=== PATIENT | male | born 1960 | race Caucasian/White ===

== ENCOUNTER 2016-12-16 17:42 | Inpatient (IN) | payer MEDICAID, MEDICARE ==
[~2016-12-16] VITALS: Ht 180.3 cm; Wt 87.1 kg
[~2016-12-16 17:42] MED LIST: ALBU0.424 IH; AMIO100T4 PO; ASPI81TA2 PO; ATOR20TA65 PO; AZIT250T6 PO; CARV3 PO; DSS100 PO; GUAIFCF5L PO; IPRA3AMP4 IH; MOM30 PO; MORP60TA49 PO; PANT40TA25 PO; [UNRECOGNIZED DRUG - CODE] PO; [UNRECOGNIZED DRUG - CODE] PO
[2016-12-16 19:02] LABS: BASOPHILS % (AUTO) 0.9 % (0.0-2.0); EOSINOPHILS % (AUTO) 1.1 % (1.0-6.0); HEMATOCRIT 42.4 % (41-53); HEMOGLOBIN 13.6 g/dL (13.5-17.5); LYMPHOCYTES # (AUTO) 2.6 K/uL (1.0-4.8); LYMPHOCYTES % (AUTO) 32.1 % (22.0-44.0); MEAN CORPUSCULAR VOLUME 94 fL (80-100); MONOCYTES # (AUTO) 0.7 K/uL (0.1-1.0); MONOCYTES % (AUTO) 8.8 % (2.0-9.0); NEUTROPHILS # (AUTO) 4.7 K/uL (1.8-7.7); NEUTROPHILS % (AUTO) 57.1 % (40.0-70.0); PLATELET COUNT (AUTO) 371 K/uL (150-450); RED BLOOD CELL COUNT(AUTO) 4.52 MIL/uL (4.50-5.90); RED CELL DISTRIBUTION WIDTH 16.4 % (11.5-14.5); WHITE BLOOD COUNT (AUTO) 8.2 K/uL (4.5-11.0)
[2016-12-16 19:12] VITALS: BP 133/72
[2016-12-16 19:12] LABS: CALCIUM, TOTAL 8.6 mg/dL (8.8-10.5); CREATININE 1.32 mg/dL (0.60-1.30); POTASSIUM 4.3 mmol/L (3.5-5.1)
[2016-12-16 19:26] LABS: ALBUMIN 3.4 g/dL (3.4-5.0); BILIRUBIN,TOTAL 0.5 mg/dL (0.1-1.0); MAGNESIUM 2.3 mg/dL (1.80-2.40); PHOSPHORUS 3.9 mg/dL (2.5-4.9); THYROID STIMULATING HORMONE 1.03 uIU/mL (0.36-3.74); TOTAL PROTEIN, SERUM 7.6 g/dL (6.4-8.2)
[2016-12-16] MEDS ORDERED: ZOLPIDEM TARTRATE 10 MG TABLET PO PRN (21:15)
[2016-12-16] MEDS ORDERED: LISINOPRIL 20 MG TABLET PO ONE (21:15)
[2016-12-16 23:30] VITALS: BP 126/79
[2016-12-17] MEDS: AMIODARONE HCL 200 MG TABLET PO SCH ×3 (00:04→21:10)
[2016-12-17] MEDS: HEPARIN SODIUM,PORCINE 5,000 UNITS/ML VIAL SQ SCH ×3 (00:05→21:10)
[2016-12-17] MEDS: MEXILETINE HCL 200 MG CAPSULE PO SCH ×4 (00:07→23:30)
[2016-12-17 05:53] VITALS: BP 122/74
[2016-12-17 07:28] VITALS: BP 117/76
[2016-12-17] MEDS: CARVEDILOL 3.125 MG TABLET PO SCH ×2 (08:07→21:10)
[2016-12-17] MEDS: ASPIRIN 81 MG CHEWABLE TABLET PO SCH (08:07)
[2016-12-17] MEDS: ATORVASTATIN CALCIUM 20 MG TABLET PO SCH (08:08)
[2016-12-17] MEDS: MORPHINE SULFATE 15 MG ER TABLET PO SCH ×2 (08:08→22:44)
[2016-12-17] MEDS: SERTRALINE HCL 50 MG TABLET PO SCH (08:08)
[2016-12-17 11:55] VITALS: BP 134/78
[2016-12-17 15:01] VITALS: BP 114/77
[2016-12-17] MEDS ORDERED: ALBUTEROL SULFATE 2.5 MG/0.5 ML NEB SOLUTION NEB PRN (18:15)
[2016-12-17] MEDS ORDERED: CefTRIAXone SODIUM 1 GM/VIAL IM SCH (18:15)
[2016-12-17] MEDS ORDERED: IPRATROPIUM BROMIDE 0.5 MG/2.5 ML NEB SOLUTION NEB PRN (18:15)
[2016-12-17 19:35] VITALS: BP 102/71
[2016-12-17] MEDS ORDERED: SODIUM CHLORIDE 0.9% 50 ML ONE (21:15)
[2016-12-17] MEDS: CefTRIAXone 1 GM/DEXTROSE 50 ML IV SCH (21:25)
[2016-12-17 23:30] VITALS: BP 134/77
[2016-12-18 04:26] VITALS: BP 121/66
[2016-12-18 07:34] VITALS: BP 122/75
[2016-12-18] MEDS: CARVEDILOL 3.125 MG TABLET PO SCH ×2 (08:22→20:51)
[2016-12-18] MEDS: MEXILETINE HCL 200 MG CAPSULE PO SCH ×2 (08:22→15:18)
[2016-12-18] MEDS: ATORVASTATIN CALCIUM 20 MG TABLET PO SCH (08:22)
[2016-12-18] MEDS: ASPIRIN 81 MG CHEWABLE TABLET PO SCH (08:22)
[2016-12-18] MEDS: MORPHINE SULFATE 15 MG ER TABLET PO SCH ×2 (08:22→20:52)
[2016-12-18] MEDS: SERTRALINE HCL 50 MG TABLET PO SCH (08:22)
[2016-12-18] MEDS: AMIODARONE HCL 200 MG TABLET PO SCH ×2 (08:22→20:52)
[2016-12-18] MEDS: HEPARIN SODIUM,PORCINE 5,000 UNITS/ML VIAL SQ SCH ×2 (08:22→20:59)
[2016-12-18 10:54] LABS: ANION GAP 7 mmol/L (8-16); CARBON DIOXIDE 29 mmol/L (22-29); CHLORIDE 101 mmol/L (98-107); GLOMERULAR FILTR. RATE CALC > 60 mL/min (>60); POTASSIUM 4.4 mmol/L (3.5-5.1); SODIUM SERUM 137 mmol/L (136-145); UREA NITROGEN, BLOOD 27 mg/dL (7-18)
[2016-12-18 11:04] LABS: B-TYPE NATRIURETIC PEPTIDE 92 pg/mL (0-100)
[2016-12-18 11:27] VITALS: BP 116/69
[2016-12-18 14:51] VITALS: BP 113/63
[2016-12-18 19:19] VITALS: BP 106/58
[2016-12-18] MEDS: CefTRIAXone 1 GM/DEXTROSE 50 ML IV SCH (20:51)
[2016-12-19] VITALS (7 sets, daily range): BP systolic 102–120; BP diastolic 61–74
[2016-12-19] MEDS: MEXILETINE HCL 200 MG CAPSULE PO SCH ×4 (00:21→23:41)
[2016-12-19 07:17] LABS: BASOPHILS % (AUTO) 0.6 % (0.0-2.0); EOSINOPHILS % (AUTO) 1.1 % (1.0-6.0); HEMATOCRIT 39.2 % (41-53); HEMOGLOBIN 12.5 g/dL (13.5-17.5); LYMPHOCYTES # (AUTO) 1.8 K/uL (1.0-4.8); LYMPHOCYTES % (AUTO) 19.9 % (22.0-44.0); MEAN CORPUSCULAR HEMOGLOBIN 29.7 pg (26.0-34.0); MEAN CORPUSCULAR HGB CONC 31.8 G/dL (31.0-37.0); MEAN CORPUSCULAR VOLUME 94 fL (80-100); MONOCYTES # (AUTO) 1.1 K/uL (0.1-1.0); MONOCYTES % (AUTO) 11.6 % (2.0-9.0); NEUTROPHILS # (AUTO) 6.1 K/uL (1.8-7.7); NEUTROPHILS % (AUTO) 66.8 % (40.0-70.0); PLATELET COUNT (AUTO) 350 K/uL (150-450); RED BLOOD CELL COUNT(AUTO) 4.19 MIL/uL (4.50-5.90); WHITE BLOOD COUNT (AUTO) 9.1 K/uL (4.5-11.0)
[2016-12-19 07:52] LABS: ALANINE AMINOTRANSFERASE 26 U/L (12-78); ALBUMIN 3.1 g/dL (3.4-5.0); ANION GAP 7 mmol/L (8-16); ASPARTATE AMINOTRANSFERASE 20 U/L (15-37); BILIRUBIN,TOTAL 0.3 mg/dL (0.1-1.0); CARBON DIOXIDE 30 mmol/L (22-29); CHLORIDE 104 mmol/L (98-107); CREATININE 1.14 mg/dL (0.60-1.30); GLOMERULAR FILTR. RATE CALC > 60 mL/min (>60); POTASSIUM 4.7 mmol/L (3.5-5.1); SODIUM SERUM 141 mmol/L (136-145); UREA NITROGEN, BLOOD 26 mg/dL (7-18)
[2016-12-19] MEDS: SERTRALINE HCL 50 MG TABLET PO SCH (08:17)
[2016-12-19] MEDS: AMIODARONE HCL 200 MG TABLET PO SCH ×2 (08:17→20:37)
[2016-12-19] MEDS: ASPIRIN 81 MG CHEWABLE TABLET PO SCH (08:17)
[2016-12-19] MEDS: HEPARIN SODIUM,PORCINE 5,000 UNITS/ML VIAL SQ SCH ×2 (08:17→20:37)
[2016-12-19] MEDS: MORPHINE SULFATE 15 MG ER TABLET PO SCH ×2 (08:18→20:37)
[2016-12-19] MEDS: ATORVASTATIN CALCIUM 20 MG TABLET PO SCH (08:19)
[2016-12-19] MEDS: CARVEDILOL 3.125 MG TABLET PO SCH ×2 (08:19→20:37)
[2016-12-19] MEDS ORDERED: ACETAMINOPHEN 650 MG/20.3 ML SOLUTION UDCUP PO PRN (17:15)
[2016-12-19] MEDS ORDERED: ACETAMINOPHEN 325 MG TABLET PO PRN (19:30)
[2016-12-19] MEDS: CefTRIAXone 1 GM/DEXTROSE 50 ML IV SCH (20:38)
[2016-12-20 05:14] VITALS: BP 119/67
[2016-12-20 07:22] VITALS: BP 116/64
[2016-12-20] MEDS: ATORVASTATIN CALCIUM 20 MG TABLET PO SCH (09:13)
[2016-12-20] MEDS: ASPIRIN 81 MG CHEWABLE TABLET PO SCH (09:13)
[2016-12-20] MEDS: CARVEDILOL 3.125 MG TABLET PO SCH (09:13)
[2016-12-20] MEDS: MEXILETINE HCL 200 MG CAPSULE PO SCH (09:13)
[2016-12-20] MEDS: MORPHINE SULFATE 15 MG ER TABLET PO SCH (09:13)
[2016-12-20] MEDS: SERTRALINE HCL 50 MG TABLET PO SCH (09:13)
[2016-12-20] MEDS: AMIODARONE HCL 200 MG TABLET PO SCH (09:13)
[2016-12-20] MEDS: HEPARIN SODIUM,PORCINE 5,000 UNITS/ML VIAL SQ SCH (09:13)
[2016-12-20 11:40] VITALS: BP 114/71
== END 2016-12-20 14:05 | DRG 309 ==
LOC: 5N 17:45
PROVIDERS: ADMIT Internal Medicine; ATTEND Internal Medicine
PROC: 4B02XTZ Measurement of Cardiac Defibrillator, External Approach (ICD-10-PCS; principal; 2016-12-17)
DX: I47.2 Ventricular tachycardia (principal); I13.0 Hypertensive heart and chronic kidney disease with heart failure and stage 1 through stage 4 chronic kidney disease, or unspecified chronic kidney disease; I50.32 Chronic diastolic (congestive) heart failure; F33.1 Major depressive disorder, recurrent, moderate; N18.3 Chronic kidney disease, stage 3 (moderate); E78.2 Mixed hyperlipidemia; I25.10 Atherosclerotic heart disease of native coronary artery without angina pectoris; R29.6 Repeated falls; M16.0 Bilateral primary osteoarthritis of hip; G89.29 Other chronic pain; I25.5 Ischemic cardiomyopathy; J44.9 Chronic obstructive pulmonary disease, unspecified; F17.210 Nicotine dependence, cigarettes, uncomplicated; F15.10 Other stimulant abuse, uncomplicated; Z95.5 Presence of coronary angioplasty implant and graft; Z95.810 Presence of automatic (implantable) cardiac defibrillator; Z88.5 Allergy status to narcotic agent; Z79.899 Other long term (current) drug therapy; Z79.2 Long term (current) use of antibiotics; Z79.82 Long term (current) use of aspirin; Z82.49 Family history of ischemic heart disease and other diseases of the circulatory system
CPT/HCPCS: 83735; 84100; 84443; 93005; 93306; 94640; J0696; J1644; J7050